=== PATIENT | female | born 1945 | race Caucasian/White ===

== ENCOUNTER → 2018-02-02 | Outpatient (CLI) | payer MEDICARE ==
[~2018-02-02] MED LIST: ALLERGY10 MG PO; ASPI325 PO; ASPI81EC PO; ATOR10 PO; CALCA500CH PO; Citrucel500 MG PO; DIAZ5 PO; DRON400T PO; ESZO1 PO; FENO145 PO; FLEC100 PO; FLUSAL2505 IH; FLUSAL2505 INH; HYDCHL12.5 PO; IRBE150 PO; LEVA.63IS IH; MAGCHL64ER PO; MAGOXI400 PO; METO100 PO; METO50 PO; METO50ER; MONT10T PO; MULVITMINF PO; OLME20 PO; OMEP20ER PO; OMEPRAZOLE MAGN20 MG PO; OXYACE7.5T PO; POTCHL10ER PO; WARF7.5 PO; XARELTO20 MG PO
== END ==
LOC: PLD 07:54 → LAB SHORT 07:54
DX: D22.5 Melanocytic nevi of trunk (principal)
CPT/HCPCS: 88305

== ENCOUNTER → 2018-02-21 | Outpatient (CLI) | payer MEDICARE | END | disposition home or self-care (01) | LOC: PLD 07:48 → LAB SHORT 07:48 | DX: D22.5 Melanocytic nevi of trunk (principal) | CPT/HCPCS: 88305 ==

== ENCOUNTER → 2020-02-27 | Outpatient (CLI) | payer MEDICARE | LOC: PLD 09:13 → LAB SHORT 09:13 | DX: D22.5 Melanocytic nevi of trunk (principal); D22.71 Melanocytic nevi of right lower limb, including hip; D22.61 Melanocytic nevi of right upper limb, including shoulder | CPT/HCPCS: 88305 ==

== ENCOUNTER 2020-09-18 06:58 | Day surgery (SDC) | payer MEDICARE ==
[~2020-09-18] VITALS: Ht 162.6 cm; Wt 74.6 kg
[~2020-09-18 06:58] MED LIST changes: +DILT30 PO; +DILTIAZEM 24HR120 M2 PO
[2020-09-18] MEDS ORDERED: GABA300 PO (07:30)
[2020-10-09] MEDS ORDERED: FLUT1DIS5 INH (10:38)
[2020-10-09] MEDS ORDERED: XOPENEX HFA15 GM INH (10:39)
[2020-10-09] MEDS ORDERED: LORA10ER PO (10:39)
[2020-10-09] MEDS ORDERED: POTA8 PO (10:40)
== END 2020-09-18 08:27 | disposition home or self-care (01) ==
LOC: ORSCSDS 06:58
PROVIDERS: Ophthalmology
PROC: 08RJ3JZ Replacement of Right Lens with Synthetic Substitute, Percutaneous Approach (ICD-10-PCS; principal; 2020-09-18 08:00)
DX: H25.11 Age-related nuclear cataract, right eye (principal); I10 Essential (primary) hypertension; E78.5 Hyperlipidemia, unspecified; I48.91 Unspecified atrial fibrillation; Z79.01 Long term (current) use of anticoagulants; Z79.899 Other long term (current) drug therapy
CPT/HCPCS: J2001; J2250; J3010; J3301; J7040; V2632

== ENCOUNTER 2020-10-16 07:52 | Day surgery (SDC) | payer MEDICARE ==
[~2020-10-16] VITALS: Ht 162.6 cm; Wt 74.3 kg
[~2020-10-16 07:52] MED LIST changes: +FLUT1DIS5 INH; +GABA300 PO; +LORA10ER PO; +POTA8 PO; +XOPENEX HFA15 GM INH
--- NOTE | 2020-10-16 08:14 | NUR ---
10/16/20 0814 Roxana Green TETRACAINE DROP PLACED IN LEFT EYE BY [email or web address].[email or web address] AT 0813.
== END 2020-10-16 09:52 | disposition home or self-care (01) ==
LOC: ORSCSDS 07:52
PROVIDERS: Ophthalmology
PROC: 08RK3JZ Replacement of Left Lens with Synthetic Substitute, Percutaneous Approach (ICD-10-PCS; principal; 2020-10-16 09:00)
DX: H25.12 Age-related nuclear cataract, left eye (principal); Z79.01 Long term (current) use of anticoagulants; Z79.899 Other long term (current) drug therapy
CPT/HCPCS: A9270; J2001; J2250; J3010; J3301; J7040; V2632

== ENCOUNTER → 2021-07-21 | Outpatient (CLI) | payer MEDICARE | END | disposition home or self-care (01) | LOC: LAB SHORT 18:17 → LAB 18:17 | DX: R30.9 Painful micturition, unspecified (principal) | CPT/HCPCS: 87077; 87086; 87186 ==

== ENCOUNTER → 2021-12-16 | Outpatient (CLI) | payer MEDICARE | END | disposition home or self-care (01) | LOC: LAB SHORT 12:35 → PLD 12:35 | DX: D23.122 Other benign neoplasm of skin of left lower eyelid, including canthus (principal) | CPT/HCPCS: 88305 ==

== ENCOUNTER 2022-04-17 09:16 | Day surgery (SDC) | payer MEDICARE ==
[~2022-04-17] VITALS: Ht 162.6 cm; Wt 67.1 kg
[2022-04-17] MEDS ORDERED: THERA-D2000 UNIT (09:45)
[2022-04-17] MEDS ORDERED: HYOS0.375T (09:45)
[2022-04-17] MEDS ORDERED: POLY500 (09:45)
== END 2022-04-17 11:49 | disposition home or self-care (01) ==
LOC: ORSCSDS 09:16
PROVIDERS: Internal Medicine Gastroenterology
PROC: 0DBK8ZX Excision of Ascending Colon, Via Natural or Artificial Opening Endoscopic, Diagnostic (ICD-10-PCS; principal; 2022-04-17 10:30)
DX: Z12.11 Encounter for screening for malignant neoplasm of colon (principal); Z86.010 Personal history of colon polyps; D12.2 Benign neoplasm of ascending colon; K57.30 Diverticulosis of large intestine without perforation or abscess without bleeding; K58.2 Mixed irritable bowel syndrome; I48.91 Unspecified atrial fibrillation; Z79.01 Long term (current) use of anticoagulants; Z79.899 Other long term (current) drug therapy
CPT/HCPCS: 88305; J2704; J7120

== ENCOUNTER 2022-08-17 12:11 | Emergency (ER) | payer MEDICARE ==
[~2022-08-17] VITALS: Ht 165.1 cm; Wt 63.5 kg
[~2022-08-17 12:11] MED LIST changes: +HYOS0.375T; +POLY500; +THERA-D2000 UNIT
== END 2022-08-17 14:22 | disposition home or self-care (01) ==
LOC: ER 12:11
DX: S80.02XA Contusion of left knee, initial encounter (principal); I48.91 Unspecified atrial fibrillation; Z88.8 Allergy status to other drugs, medicaments and biological substances; Z79.899 Other long term (current) drug therapy; W19.XXXA Unspecified fall, initial encounter
CPT/HCPCS: 73562-LT

== ENCOUNTER 2023-02-26 07:11 | Observation (INO) | payer MEDICARE ==
[~2023-02-26] VITALS: Ht 162.6 cm; Wt 69.6 kg
[~2023-02-26 07:11] MED LIST changes: -POLY500; +POLY500 PO
[2023-02-26 07:57] LABS: BASOPHILS ABSOLUTE AUTO 0.03 K/mm3 (0.00-0.23); BASOPHILS PERCENT AUTO 1 % (0-2); EOSINOPHILS ABSOLUTE AUTO 0.24 K/mm3 (0.00-0.68); EOSINOPHILS PERCENT AUTO 4 % (0-6); Hematocrit 39.1 % (33.0-51.0); Hemoglobin 13.6 g/dL (11.5-16.0); IMMATURE GRAN ABSOLUTE AUTO 0.02 K/mm3 (0.00-0.10); IMMATURE GRAN PERCENT AUTO 0 % (0-1); LYMPHOCYTES ABSOLUTE AUTO 2.56 K/mm3 (0.84-5.20); LYMPHOCYTES PERCENT AUTO 43 % (21-46); MONOCYTES ABSOLUTE AUTO 0.59 K/mm3 (0.16-1.47); MONOCYTES PERCENT AUTO 10 % (4-13); Mean Corpuscular HGB 31.3 pg (26.0-34.0); Mean Corpuscular HGB Conc 34.8 g/dL (31.5-36.5); Mean Corpuscular Volume 90 fL (80-100); NEUTROPHILS PERCENT AUTO 42 % (41-73); Platelet Count 211 K/mm3 (150-400); RDW Coefficient Variation 13.1 % (11.7-14.2); RDW Standard Deviation 43.7 fL (35.1-46.3); Red Blood Cell Count 4.35 M/mm3 (3.80-5.20); White Blood Cell Count 5.94 K/mm3 (4.00-11.30)
[2023-02-26 08:14] LABS: Albumin, Blood 3.6 g/dL (3.4-5.0); Albumin/Globulin Ratio 1.1 (0.8-1.8); Bilirubin, Total 0.4 mg/dL (0.1-1.0); Bun/Creatinine Ratio 24.1 (12.0-20.0); Calcium, Blood 8.8 mg/dL (8.5-10.1); Creatinine, Blood 0.75 mg/dL (0.40-1.00); Globulin, Blood 3.2 g/dL (2.2-4.0); Potassium, Blood 3.6 mmol/L (3.5-5.5); Total Protein, Blood 6.8 g/dL (6.4-8.2)
[2023-02-26] MEDS ORDERED: OLME5TAB PO (08:15)
[2023-02-26] MEDS ORDERED: MONT10T PO (08:15)
[2023-02-26] MEDS ORDERED: FOLI1 PO (08:16)
[2023-02-26] MEDS ORDERED: ANASPAZ0.125 MG PO (08:18)
[2023-02-26 14:36] VITALS: BP 137/90
--- NOTE | 2023-02-26 17:00 | NUR ---
assumed care of pt. she is laying in bed with a cool cloth on her forehead, states she gets dizzy when she turns to the right and the noise in her right ear is less than this am. spouce in room, reports a h/a, called for some tylenol. oriented to room layout and call sytem, call light in reach.
--- NOTE | 2023-02-26 17:08 | NUR ---
SHIFT SUMMARY 1430 RECEIVED PT TO 364 VIA GURNEY FROM ER. SLIDE TX TO BED D/T VERTIGO. PT C/O ROARING IN RT EAR WITH HEARING LOSS. PT LYING TO L SIDE, UNABLE TO EVEN LAY ON HER BACK AND COMPLETELY UNABLE TO TURN TO R SIDE. IMAGING CALLED TO REPORT MRI TO BE DONE SOON AND SEE IF PT WOULD NEED MEDICATION. PT MEDICATED WITH VALUIM PER EMAR. HOME MEDS VERIFIED WITH PT AND PT REPORTING THAT SHE HAD NOT TAKEN HER CARDIAZEM TODAY AND WAS AFRAID HER HRT RATE WOULD GET OUT OF CONTROL. DR ARTHUR NOTIFIED AND NEW ORDERS PLACED. PT ABLE TO TOLERATE MRI AND RETURNED TO . PT'S NOW TO TO VISIT. PT REQUESTING TYLENOL FOR CANSECO. REPORT GIVEN TO RUBEN MIRANDA RN, WHO IS CALLING DR ARTHUR FOR ORDERS. CALL LT IN REACH.
[2023-02-26 20:53] VITALS: BP 133/82
[2023-02-27 04:28] VITALS: BP 133/80
--- NOTE | 2023-02-27 05:40 | NUR ---
SHIFT SUMMARY 364 PT A&OX4 AND PLEASANT. PT REPORTED FEELING LESS DIZZY AT START OF SHIFT. PT WAS ABLE TO GET UP WITH 1 ASSIST TO BSC. PT ALSO REPOTS DIFFICULTY HEARING OUT OF RIGHT EAR. PT VERBALIZED IT SOUNDED LIKE "RACE CARS" DRIVING BY IN THE AFFECTED EAR. NO EPISODES OF VOMITTING BUT PT STILL REPORTS SLIGHT NAUSEA AT START OF SHIFT. PT ABLE TO SLEEP T/O MOST OF THE NIGHT. VSS. PT EDUCATED ON POSSIBLE SOURCES OF IGNITION AND NO SMOKING POLICY. BED IN LOWEST POSITION AND CALL LIGHT IN REACH.
[2023-02-27 06:18] LABS: BASOPHILS ABSOLUTE AUTO 0.01 K/mm3 (0.00-0.23); BASOPHILS PERCENT AUTO 0 % (0-2); EOSINOPHILS PERCENT AUTO 0 % (0-6); Hematocrit 41.9 % (33.0-51.0); Hemoglobin 14.8 g/dL (11.5-16.0); IMMATURE GRAN ABSOLUTE AUTO 0.02 K/mm3 (0.00-0.10); IMMATURE GRAN PERCENT AUTO 0 % (0-1); LYMPHOCYTES ABSOLUTE AUTO 0.93 K/mm3 (0.84-5.20); LYMPHOCYTES PERCENT AUTO 11 % (21-46); MONOCYTES ABSOLUTE AUTO 0.24 K/mm3 (0.16-1.47); MONOCYTES PERCENT AUTO 3 % (4-13); Mean Corpuscular HGB 31.3 pg (26.0-34.0); Mean Corpuscular HGB Conc 35.3 g/dL (31.5-36.5); Mean Corpuscular Volume 89 fL (80-100); Mean Platelet Volume 9.3 fL (9.1-12.4); NEUTROPHILS PERCENT AUTO 86 % (41-73); Platelet Count 246 K/mm3 (150-400); RDW Coefficient Variation 12.9 % (11.7-14.2); RDW Standard Deviation 42.2 fL (35.1-46.3); Red Blood Cell Count 4.73 M/mm3 (3.80-5.20)
[2023-02-27 07:28] VITALS: BP 131/88
[2023-02-27 10:24] LABS: Albumin, Blood 3.3 g/dL (3.4-5.0); Albumin/Globulin Ratio 0.9 (0.8-1.8); Bilirubin, Total 0.5 mg/dL (0.1-1.0); Bun/Creatinine Ratio 23.2 (12.0-20.0); Calcium, Blood 9.4 mg/dL (8.5-10.1); Creatinine, Blood 0.82 mg/dL (0.40-1.00); Globulin, Blood 3.6 g/dL (2.2-4.0); Potassium, Blood 3.8 mmol/L (3.5-5.5); Total Protein, Blood 6.9 g/dL (6.4-8.2)
[2023-02-27] MEDS ORDERED: DIAZ2 PO (14:24)
--- NOTE | 2023-02-27 17:39 | NUR ---
PT DISCHARGED AT 1500, ESCORTED OUTSIDE IN WHEELCHAIR. WRITTEN SCRIPT FOR VALIUM GIVEN TO PT.
== END 2023-02-27 15:29 | disposition home or self-care (01) ==
LOC: ER 07:11 → MEDS 07:12 → ENPENDDIS 02-27 13:14 → MEDS 02-27 15:29
PROVIDERS: Emergency Medicine; ADMIT Family Medicine
DX: H81.03 Meniere's disease, bilateral (principal); I48.19 Other persistent atrial fibrillation; K58.9 Irritable bowel syndrome, unspecified; I51.7 Cardiomegaly; I10 Essential (primary) hypertension; I25.10 Atherosclerotic heart disease of native coronary artery without angina pectoris; E78.00 Pure hypercholesterolemia, unspecified; J45.909 Unspecified asthma, uncomplicated; K21.9 Gastro-esophageal reflux disease without esophagitis; Z79.01 Long term (current) use of anticoagulants; Z88.8 Allergy status to other drugs, medicaments and biological substances; Z79.899 Other long term (current) drug therapy
CPT/HCPCS: 36415; 70450; 70551; 80053; 84484; 85025; 93005; 93010; 96374; 96375; 97110; 97161; 99285-25; A9270; G0378; J1100; J2765; J3360

== ENCOUNTER → 2023-07-19 | Outpatient (CLI) | payer MEDICARE ==
[~2023-07-19] MED LIST changes: +ANASPAZ0.125 MG PO; +DIAZ2 PO; +FOLI1 PO; +OLME5TAB PO
[2023-07-20 11:13] LABS: Candida species (DNA Probe) Negative (NEGATIVE); G. vaginalis (DNA Probe) Negative (NEGATIVE); T. vaginalis (DNA Probe) Negative (NEGATIVE)
== END | disposition home or self-care (01) ==
LOC: LAB 13:48 → LAB SHORT 13:48
PROVIDERS: Advanced Practice Midwife
DX: N76.0 Acute vaginitis (principal)
CPT/HCPCS: 87480; 87510; 87660